=== PATIENT | female | born 1955 | race Caucasian/White ===

== ENCOUNTER 2016-08-23 07:44 | Emergency (ER) | payer MEDICARE, OTHER ==
[~2016-08-23] VITALS: Ht 177.8 cm; Wt 104.0 kg
[2016-08-23] MEDS ORDERED: PERC10TA27 PO (07:56)
[2016-08-23] MEDS ORDERED: CLON1 PO (07:56)
[2016-08-23] MEDS ORDERED: CYCL1TAB29 PO (07:56)
[2016-08-23] MEDS ORDERED: LOSA100T2 PO (07:56)
[2016-08-23] MEDS ORDERED: SERT-129 PO (07:56)
[2016-08-23] MEDS ORDERED: ATOR20TA15 PO (07:56)
[2016-08-23] MEDS ORDERED: AMLO10TA2 PO (07:56)
[2016-08-23 07:58] VITALS: BP 134/83; PULSE 95; RESP 16; TEMP 98.3; O2SAT 94
--- NOTE | 2016-08-23 08:12 | PD ---
HPI Chief Complaint: Injury Time Seen by Provider: 08:03 Travel History International Travel<30 days: No Contact w/Intl Traveler<30days: No Traveled to known affect area: No History of Present Illness HPI 61 year old female who presents to ER with c/o of right knee and right ankle and foot pain. Patient reports that on Sunday, a bike rack fell onto her right leg. Reports that she has been walking but reports increased pain and swelling to her right lower extremity. Reports that the swelling has decreased but she still has alot of pain and wants to make sure she doesn't have a fracture. PFSH Past Medical History Hx Anticoagulant Therapy: No Cardiovascular Problems: Yes (HTN, CHOL) High Cholesterol: Yes Diabetes: No Patient Takes Glucophage: No Diminished Hearing: No Hypertension: Yes Tetanus Vaccination: Unknown ?: Not Past Surgical History Other Surgery: Yes (LAMINECTOMY - MSO4 PUMP PLACED AND D/C'D) Social History Alcohol Use: Yes (OCC) Tobacco Use: Yes (1 PPD) Substance Use: No Allergies-Medications (Allergen,Severity, Reaction): Coded Allergies: No Known Allergies (Unverified , 08/23/16) Reported Meds & Prescriptions Reported Meds & Active Scripts Active Ibuprofen 600 Mg Tab 600 Mg PO Q6H PRN Reported Klonopin (Clonazepam) 1 Mg Tab 1 Mg PO BID Percocet (Oxycodone-Acetaminophen) 10-325 mg Tab 1 Tab PO Q6H PRN Sertraline (Sertraline HCl) 100 Mg Tab 100 Mg PO DAILY Flexeril (Cyclobenzaprine HCl) 10 Mg Tab 10 Mg PO TID Atorvastatin (Atorvastatin Calcium) 20 Mg Tab 20 Mg PO HS Amlodipine (Amlodipine Besylate) 10 Mg Tab 10 Mg PO DAILY Losartan-Hydrochlorothiazide 100-25 Mg Tab 1 Tab PO DAILY Review of Systems General / Constitutional: No: Fever Eyes: No: Visual changes HENT: No: Headaches Cardiovascular: No: Chest Pain or Discomfort Respiratory: No: Shortness of Breath Gastrointestinal: No: Abdominal Pain Genitourinary: No: Dysuria Musculoskeletal: Positive: Limited ROM (right knee/ankle), Pain (right knee/ ankle) Skin: No Rash Neurologic: No: Weakness Psychiatric: No: Depression Endocrine: No: Polydipsia Hematologic/Lymphatic: No: Easy Bruising Physical Exam Narrative GENERAL: Well-nourished, well-developed patient. SKIN: Focused skin assessment warm/dry. HEAD: Normocephalic. EYES: No scleral icterus. No injection or drainage. NECK: Supple, trachea midline. No JVD or lymphadenopathy. CARDIOVASCULAR: Regular rate and rhythm without murmurs, gallops, or rubs. RESPIRATORY: Breath sounds equal bilaterally. No accessory muscle use. GASTROINTESTINAL: Abdomen soft, non-tender, nondistended. MUSCULOSKELETAL: No cyanosis, or edema. Patient with pain with range of motion to her right knee as well as her right ankle and foot, open fracture or swelling. Pulses intact, neurovascular intact. Left lower extremity: Normal exam BACK: Nontender without obvious deformity. No CVA tenderness. Data Data Last Documented VS Vital Signs Date Time Temp Pulse Resp B/P Pulse Ox O2 Delivery O2 Flow Rate FiO2 08/23/16 07:58 98.3 95 16 134/83 94 Orders Knee, Complete (4vws) (08/23/16 ) Foot, Complete ([id number]) (08/23/16 ) Ankle, Complete ([id number]) (08/23/16 ) [facility] Medical Decision Making Medical Screen Exam Complete: Yes Emergency Medical Condition: Yes Interpretation(s) Vital Signs Date Time Temp Pulse Resp B/P Pulse Ox O2 Delivery O2 Flow Rate FiO2 08/23/16 07:58 98.3 95 16 134/83 94 Differential Diagnosis Knee sprain, meniscal injury, patellar fracture, knee fracture, ankle fracture, foot sprain Narrative Course 61 year old female who presents to ER with c/o of knee pain and ankle and foot pain. Patient reports that symptoms began on Sunday when a bike rack fell onto her. xrays of her right knee/ankle and foot ordered. Last Impressions Knee X-Ray 08/23/16 0000 Signed Impressions: Service Date/Time: Tuesday, August 23, 2016 08:37 - CONCLUSION: Degenerative changes of fracture. Mick Lancaster MD FACR Foot X-Ray 08/23/16 0000 Signed Impressions: Service Date/Time: Tuesday, August 23, 2016 08:51 - CONCLUSION: Degenerative changes with mild bunion deformity. No acute fracture. Geovanni Lancaster MD Ankle X-Ray 08/23/16 0000 Signed Impressions: Service Date/Time: Tuesday, August 23, 2016 08:45 - CONCLUSION: Degenerative changes. No acute fracture. Geovanni Lancaster MD patient will follow up with orthopedic surgery and return to ER as needed Diagnosis Primary Impression: Right knee sprain Qualified Code: S83.91XA - Sprain of right knee, unspecified ligament, initial encounter Additional Impressions: Knee effusion, right Ankle sprain Qualified Code: S93.401A - Sprain of right ankle, unspecified ligament, initial encounter Referrals: Aly Dee MD Patient Instructions: General Instructions Additional Instructions: Please follow-up with the orthopedic surgeon as outpatient Return to the emergency room as needed Return to the emergency does worsen or persist Rest, ice, elevate your right lower extremity. Scripts Ibuprofen 600 Mg Uui126 Mg PO Q6H PRN (Pain/Inflammation) #40 TAB Ref 0 Prov:Letty Dupree DO 08/23/16 Disposition: 01 DISCHARGE HOME Condition: Stable Letty Dupree DO Aug 23, 2016 08:12
[2016-08-23] MEDS ORDERED: IBUP-232 PO (08:23)
--- NOTE | 2016-08-23 09:09 | RADHPO ---
EXAM DATE/TIME: 08/23/2016 08:51 [facility] COMPARISON: ANKLE RIGHT COMPLETE ([id number]), August 23, 2016, 8:45. INDICATIONS : Right foot pain post bike rack falling on it. MEDICAL HISTORY : Hypertension. Hypercholesterolemia. SURGICAL HISTORY : Laminectomy. ENCOUNTER: Initial ACUITY: 4 - 6 days PAIN SCORE: 8/10 LOCATION: Right foot. FINDINGS: There is mild bunion deformity of the great toe with secondary osteoarthritic changes. There is no ac pk fracture or destructive lesion identified. Note is made of pes planus. CONCLUSION: Degenerative changes with mild bunion deformity. No acute fracture. Geovanni Lancaster MD on August 23, 2016 at 9:07 Board Certified Radiologist. This report was verified electronically.
--- NOTE | 2016-08-23 09:09 | RADHPO ---
EXAM DATE/TIME: 08/23/2016 08:45 [facility] COMPARISON: KNEE RIGHT COMPLETE ([id number]), August 23, 2016, 8:37. INDICATIONS : Right ankle pain post bike rack falling on it, MEDICAL HISTORY : Hypertension. Hypercholesterolemia. SURGICAL HISTORY : Laminectomy. ENCOUNTER: Initial ACUITY: 4 - 6 days PAIN SCORE: 8/10 LOCATION: Right ankle FINDINGS: The examination demonstrates the osseous structures to be grossly intact. No acute fracture is seen. There are moderate osteoarthritic changes within the ankle joint. There is an enthesophyte along the anterior aspect of the talus and at the insertion of the plantar fascia. CONCLUSION: Degenerative changes. No acute fracture. Geovanni Lancaster MD on August 23, 2016 at 9:06 Board Certified Radiologist. This report was verified electronically.
--- NOTE | 2016-08-23 09:27 | RADHPO ---
EXAM DATE/TIME: 08/23/2016 08:37 [facility] COMPARISON: No previous studies available for comparison. INDICATIONS : Right knee pain post bike rack falling on it. MEDICAL HISTORY : Hypertension. Hypercholesterolemia. SURGICAL HISTORY : Laminectomy ENCOUNTER: Initial ACUITY: 4 - 6 days PAIN SCORE: 8/10 LOCATION: Right medial knee FINDINGS: Small joint effusion evident. Degenerative changes are noted with loss of vertebral cartilage in the medial compartment. Osteophytes are projected into patellofemoral compartment. There is no fractur e. CONCLUSION: Degenerative changes of fracture. Mick Lancaster MD FACR on August 23, 2016 at 9:22 Board Certified Radiologist. This report was verified electronically.
== END 2016-08-23 10:06 | disposition home or self-care (01) ==
LOC: PHEFT 07:44
DX: S83.91XA Sprain of unspecified site of right knee, initial encounter (principal); M25.461 Effusion, right knee; S93.401A Sprain of unspecified ligament of right ankle, initial encounter; W20.8XXA Other cause of strike by thrown, projected or falling object, initial encounter
CPT/HCPCS: 73564; 73610; 73630; 99284